=== PATIENT | female | born 1960 | race Caucasian/White ===

== ENCOUNTER 2016-10-19 12:03 | Day surgery (SDC) | payer BC ==
[~2016-10-19] VITALS: Ht 170.2 cm; Wt 81.0 kg
[~2016-10-19 12:03] MED LIST: BUPIVACAINE/PF 0.5% ONE; ESTR1VAG VG
[2016-10-19] MEDS ORDERED: LACTATED RINGERS 1,000 ML IV SCH (13:04)
[2016-10-19 13:26] VITALS: BP 159/92
[2016-10-19] MEDS ORDERED: FENTANYL PF 100 MCG/2ML ONE ×2 (14:40→15:40)
[2016-10-19] MEDS ORDERED: MIDAZOLAM 1 MG/ML, 2ML ONE (14:40)
[2016-10-19] MEDS ORDERED: SUCCINYLCHOLINE 20 MG/ML, 10ML ONE (15:19)
[2016-10-19] MEDS ORDERED: KETOROLAC 30 MG/1 ML ONE (15:19)
[2016-10-19] MEDS ORDERED: ROCURONIUM 10 MG/ML ONE (15:19)
[2016-10-19] MEDS ORDERED: DEXAMETHASONE 4 MG/ML, 1ML ONE (15:19)
[2016-10-19] MEDS ORDERED: PROPOFOL 10 MG/ML, 20ML ONE (15:19)
[2016-10-19] MEDS ORDERED: ONDANSETRON 2MG/ML, 2ML ONE (15:19)
[2016-10-19] MEDS ORDERED: CEFAZOLIN 1,000 MG ONE (15:19)
[2016-10-19] MEDS ORDERED: OXYcodone 5 MG/5 ML ORAL.SOL UDC ONE (16:29)
[2016-10-19] MEDS ORDERED: ONDANSETRON 2MG/ML, 2ML IVPush PRN (16:30)
[2016-10-19] MEDS ORDERED: PROMETHAZINE 25 MG/ML, 1ML IV PRN (16:30)
[2016-10-19] MEDS ORDERED: HYDROmorphone 1 MG/ML, 1ML IV PRN (16:30)
[2016-10-19] MEDS ORDERED: ALBUTEROL/IPRATROPIUM 2.5MG/0.5MG, 3 ML NPPB PRN (16:30)
[2016-10-19] MEDS ORDERED: OXYcodone 5 MG/5 ML ORAL.SOL UDC PO PRN (16:30)
[2016-10-19] MEDS ORDERED: MIDAZOLAM 1 MG/ML, 2ML IV PRN (16:30)
[2016-10-19] MEDS ORDERED: ACETAMINOPHEN 325 MG TABLET PO PRN (16:30)
[2016-10-19] MEDS ORDERED: LABETALOL 5MG/ML, 20ML IV PRN (16:30)
[2016-10-19] MEDS ORDERED: MEPERIDINE/PF 25MG/0.5ML IVPush PRN (16:30)
[2016-10-19] MEDS ORDERED: FENTANYL PF 100 MCG/2ML IV PRN (16:30)
[2016-10-19] MEDS ORDERED: hydrALAzine 20 MG/ML, 1ML IV PRN (16:30)
== END 2016-10-19 19:00 ==
LOC: OUT 12:03
PROVIDERS: ATTEND Orthopaedic Surgery
DX: M25.872 Other specified joint disorders, left ankle and foot (principal); M65.872 Other synovitis and tenosynovitis, left ankle and foot; Z88.1 Allergy status to other antibiotic agents; Z88.8 Allergy status to other drugs, medicaments and biological substances; Z87.39 Personal history of other diseases of the musculoskeletal system and connective tissue
CPT/HCPCS: 28122; 73620; 76000; J0330; J0690; J1100; J1885; J2250; J2405; J2704; J3010; J3490